=== PATIENT | female | born 1980 | race Caucasian/White ===

== ENCOUNTER 2017-07-28 12:50 | Emergency (ER) | payer OTHER, BC ==
[2017-07-28 13:20] VITALS: RESP 16; TEMP 98.4
--- NOTE | 2017-07-28 13:53 | EDPHY ---
H & P Time Seen by Provider: 07/28/17 13:41 HPI/ROS: CHIEF COMPLAINT: Back pain while lifting a work HISTORY OF PRESENT ILLNESS: 37-year-old female prior history of chronic intermittent low back pains, works at [employer] is a lifting objects regularly states that last evening while at work she noticed intermittent low back pain with intermittent left lower extremity radiculopathy. No direct trauma or fall. No incontinence or retention. She also states that when she woke this morning her toes is bilaterally appeared pallorous however this has now resolved. No saddle anesthesia. No fever or chills. No abdominal pain. Patient's states that her current pain level is 0/10. PRIMARY CARE PROVIDER: REVIEW OF SYSTEMS: A ten point review of systems was performed and is negative with the exception of the items mentioned in the HPI PAST MEDICAL & SURGICAL HISTORY: chronic intermittent low back pain SOCIAL HISTORY: Works a [employer] PHYSICAL EXAM (Prior to examination, patient consented to physical exam, hands were washed and my usual and customary physical exam procedures followed) 1) GENERAL: Well-developed, well-nourished, alert and oriented. Appears to be in no acute distress. 2) HEAD: Normocephalic, atraumatic 3) HEENT: Pupils equal, round, reactive to light bilaterally. Sclera anicteric. Nasopharynx, oropharynx, clear, no lesions. 4) NECK: Full range of motion, no meningeal signs. 5) LUNGS: Clear auscultation bilaterally, no wheezes, no rhonchi, no retractions. 6) HEART: Regular rate and rhythm, no murmur, no heave, no gallop. 7) ABDOMEN: No guarding, no rebound, no focal tenderness, negative McBurney's, negative Kilgore's, negative Rovsing's, negative peritoneal sign, 8) MUSCULOSKELETAL: Moving all extremities, no focal areas of tenderness, no obvious trauma. No peripheral edema or discoloration. Specifically, bilateral feet are examined she has capillary refill less than 2 sec, normal color, normal temperature to all digits, DP PT pulses present and brisk. 9) BACK: tender to palpation paraspinous muscle. No CVA tenderness, no midline vertebral tenderness, no fluctuance, no step-off, no obvious trauma, no visual or palpable abnormality. Patella, Achilles reflexes intact to bilateral strength 5/5 10) SKIN: No rash, no petechiae. 11) NEURO: Awake, alert, and oriented to person, place and time. Answers questions appropriately. There were no obvious focal neurologic abnormalities. No cerebellar dysfunction. Normal steady gait. Upper and lower extremities bilaterally with strength 5 / 5, reflexes 2+.. DIFFERENTIAL DIAGNOSIS: In no particular order, including but not limited to, fracture, sprain/strain, cauda equina, spinal infectious etiology. MEDICAL DECISION MAKING Lower index of suspicion for cauda equina, epidural abscess, epidural hematoma, lumbar myositis, diskitis, as the patient is neurologically intact in the lower extremities, has patella and Achilles reflexes intact and equal bilaterally, has no neurologic deficits, no incontinence, no retention, no midline pain, no fluctuance, afebrile, no flulike symptoms. Pain may be secondary to muscular strain, may be secondary to discogenic etiology. At this point I do not identify definitive indication for emergent MRI, however patient may necessitate this on an outpatient basis. This appears to be a work related issue. Recommend follow up with work comp provider. Patient given acute back pain precautions. She also noted that when she awoke her bilateral toes appeared pallorous. This is now resolved and she is currently asymptomatic. On exam she has no signs of vascular compromise. We discussed possibility of transient vascular spasm. At this time I do not think that emergent intervention or diagnostic studies are indicated however she has been given acute precautions regarding this. Patient verbalizes understanding of discharge instructions. I believe them be competent decision-makers. All questions and concerns have been addressed by me. Ample opportunity for questions have been provided . The patient understands that this diagnosis is provisional and can never be 100% accurate. Usual and customary warnings were given concerning the clinical impression and all the patient's questions were answered. The patient was instructed to return to the emergency department should her symptoms worsen or return, or develop any new symptoms, otherwise to followup as directed in discharge instructions. Care of patient under supervision of primary supervising physician Dr Gold . Smoking Status: Heavy smoker Constitutional: Initial Vital Signs Temperature (C) 36.9 C 07/28/17 13:17 Respiratory Rate 16 07/28/17 13:17 Blood Pressure 129/103 H 07/28/17 13:17 O2 Sat (%) 97 07/28/17 13:17 O2 Delivery Mode Room Air Allergies/Adverse Reactions: No Known Allergies Allergy (Unverified 07/28/17 13:17) Home Medications: Medication Instructions Recorded NK [No Known Home Meds] 07/28/17 MDM/Departure - Depart Disposition: Home, Routine, Self-Care Clinical Impression: Lumbar radiculopathy, acute Condition: Fair Instructions: Lumbar Radiculopathy (ED) Additional Instructions: Seek medical attention if you develop new or worsening pain, if you develop bladder or bowel dysfunction, numbness around your perineum, foot drop, or any other symptoms that concern you. Regarding your r toes, if you develop discoloration again at this not go way, seek immediate medical attention Stand Alone Forms: Work Comp Follow Up Referrals: Alice Sahu MD [Primary Care Provider] - As per Instructions
[2017-07-28 14:06] VITALS: BP 121/87; PULSE 93; O2SAT 94
== END 2017-07-28 14:06 | disposition home or self-care (01) ==
DX: M54.16 Radiculopathy, lumbar region (principal); F17.200 Nicotine dependence, unspecified, uncomplicated